=== PATIENT | male | born 1990 | race Caucasian/White ===

== ENCOUNTER → 2016-07-29 | Outpatient (CLI) | payer OTHER ==
[~2016-07-29] MED LIST: AMOXICILLIN500 MG PO; ANUSOL-HC25 MG R; CIPROFLOXACIN500 MG PO; CLARITIN10 MG PO; CYCLOBENZAPRINE10 MG PO; HYDROCODONE BIT1 T11 PO; KEFLEX500 MG PO; MOTRIN800 MG PO; Motrin,Rufen800 MG PO; NAPROSYN500 MG PO; NKHM; PRILOSEC20 M1 PO; PYRIDIUM200 MG PO; TESSALON PERLE200 MG PO; ULTRAM50 MG PO; VIBRA-TAB100 MG PO; Vicodin 5/500 505 MG PO; ZITHROMAX Z PA250 MG PO; ZOFRAN ODT4 MG SL
== END | disposition home or self-care (01) ==
LOC: RAD 14:20
DX: R06.02 Shortness of breath (principal); R07.2 Precordial pain

== ENCOUNTER → 2016-08-14 | Outpatient (CLI) | payer OTHER ==
--- NOTE | ~2016-08-14 | EEG ---
[place], [place] ELECTROENCEPHALOGRAM REPORT NAME: KEO CLIFFORD UNIT #: [id number] ROOM: DOCTOR: JR SALGADO MD,LADI DOS: 08/14/2016 This 26-year-old man, on no medications, displayed the following underlying rhythms: Well-organized 10 Hz, 30 microvolts alpha rhythm in both posterior regions. 18 Hz, 20-30 microvolts beta rhythms were noted in both anterior and posterior regions. There was symmetrical attenuation of posterior rhythm with eye opening. 2 minutes of fair hyperventilation produced no abnormalities. There was fair driving photic stimulation without abnormalities. The patient did fall sleep, progressing uneventfully through stages 1 and 2 of somnolence. Well-formed sleep spindles were seen. Throughout this tracing, there were no focal abnormalities or epileptiform activity. IMPRESSION: Normal awake and sleep electroencephalogram. Clinical correlation was highly advised. LADI SALGADO MD CM:EEG:ELECTROENCEPHALOGRAM REPORT [id number] MD LADI SALGADO JR
== END | disposition home or self-care (01) ==
LOC: US 08-13 10:00 → CT 08-13 11:00 → CP 10:42 → US 13:00
DX: R55 Syncope and collapse (principal)

== ENCOUNTER 2016-12-13 18:09 | Emergency (ER) | payer OTHER ==
[~2016-12-13] VITALS: Wt 81.6 kg
[~2016-12-13 18:09] MED LIST changes: -IBU800 MG PO; -VIBRAMYCIN100 MG PO
[2016-12-13 18:11] VITALS: BP 121/71
[2016-12-13] MEDS ORDERED: IBU800 MG PO (18:34)
[2016-12-13] MEDS ORDERED: VIBRAMYCIN100 MG PO (18:34)
[2016-12-13 19:13] LABS: BILIRUBIN NEGATIVE (NEGATIVE); BLOOD NEGATIVE (NEGATIVE); CLARITY CLEAR (CLEAR); COLOR YELLOW (YELLOW); GLUCOSE NEGATIVE (NEGATIVE); KETONE NEGATIVE (NEGATIVE); LEUKO ESTERASE NEGATIVE (NEGATIVE); NITRITE NEGATIVE (NEGATIVE); PH 6.5 (5.0-9.0); PROTEIN NEGATIVE (NEGATIVE); SPECIFIC GRAVITY <= 1.005 (1.005-1.030); UROBILINOGEN 0.2 E.U./dl (0.2-1.0)
[2016-12-13 19:27] LABS: BACTERIA TRACE; EPITHELIAL CELLS 0-2; URINE REFLEX COMMENT NO (NO)
== END 2016-12-13 19:00 | disposition home or self-care (01) ==
LOC: ED 18:09
PROVIDERS: Emergency Medicine
DX: N43.3 Hydrocele, unspecified (principal); N45.1 Epididymitis; F17.200 Nicotine dependence, unspecified, uncomplicated; F32.9 Major depressive disorder, single episode, unspecified; Z98.890 Other specified postprocedural states

== ENCOUNTER → 2016-12-13 | Outpatient (CLI) | payer OTHER ==
[~2016-12-13] MED LIST changes: +IBU800 MG PO; +VIBRAMYCIN100 MG PO
== END | disposition home or self-care (01) ==
LOC: US 16:00
DX: N43.2 Other hydrocele (principal); N45.3 Epididymo-orchitis; N50.89 Other specified disorders of the male genital organs

== ENCOUNTER 2017-10-31 13:32 | Emergency (ER) | payer SELFPAY ==
[~2017-10-31] VITALS: Ht 175.2 cm; Wt 81.2 kg
[~2017-10-31 13:32] MED LIST changes: +IBU800 MG PO; +VIBRAMYCIN100 MG PO
[2017-10-31 14:03] LABS: BASO % 0.4 % (0.0-1.0); EOS # 0.2 10*3/uL (0.0-0.4); EOS % 2.1 % (1.0-4.0); HEMATOCRIT 43.6 % (42.0-52.0); HEMOGLOBIN 15.7 g/dl (14.0-18.0); LYMPH % 21.8 % (27.0-41.0); MEAN CELL VOLUME 86.7 fl (80.0-94.0); MEAN CORPUSCULAR HGB 31.2 pg (27.0-31.0); MEAN PLATELET VOLUME 9.7 fl (9.6-12.3); MONO # 0.5 10*3/uL (0.1-1.0); MONO % 5.9 % (3.0-9.0); NEUT # 6.3 10*3/uL (2.3-7.9); NEUT % 69.5 % (47.0-73.0); PLATELET COUNT AUTOMATED 227 10*3/uL (130-400); RED BLOOD COUNT 5.03 10*6/uL (4.50-5.90); RED CELL DISTRI WIDTH 12.1 % (0-14.5); WHITE BLOOD COUNT 9.1 10*3/uL (4.8-10.8)
[2017-10-31 14:12] LABS: ACT PARTIAL THROMBO TIME 21.9 SECONDS (20.8-31.5)
[2017-10-31 14:19] LABS: ALBUMIN 4.1 gm/dl (3.1-4.5); ALKALINE PHOSPHATASE 72 U/L (45-117); BUN 16 mg/dl (7-24); CHLORIDE 102 mmol/L (98-107); CREATININE 1.19 mg/dL (0.70-1.30); LIPASE 84 U/L (73-393); POTASSIUM 4.3 mmol/L (3.5-5.1); SGOT/AST 18 IU/L (3-35); SGPT/ALT 36 U/L (12-78); SODIUM 136 mmol/L (136-145); TOTAL PROTEIN 7.4 gm/dL (6.4-8.2)
[2017-10-31 14:20] LABS: TROPONIN I < 0.015 ng/ml (<0.045)
[2017-10-31 15:31] LABS: BILIRUBIN NEGATIVE (NEGATIVE); BLOOD NEGATIVE (NEGATIVE); CLARITY CLEAR (CLEAR); COLOR YELLOW (YELLOW); GLUCOSE NEGATIVE (NEGATIVE); KETONE NEGATIVE (NEGATIVE); LEUKO ESTERASE NEGATIVE (NEGATIVE); NITRITE NEGATIVE (NEGATIVE); UROBILINOGEN 0.2 E.U./dl (0.2-1.0)
[2017-10-31 15:43] LABS: BACTERIA TRACE; WBC 0-2 wbc/hpf (0-5)
[2017-10-31 16:33] VITALS: BP 116/72
[2017-10-31] MEDS ORDERED: ZOFRAN ODT4 MG SL (16:57)
[2017-10-31] MEDS ORDERED: Motrin,Rufen800 MG PO (16:57)
== END 2017-10-31 17:00 | disposition home or self-care (01) ==
LOC: ED 13:32
PROVIDERS: Emergency Medicine
DX: R10.30 Lower abdominal pain, unspecified (principal); R11.2 Nausea with vomiting, unspecified; Z98.890 Other specified postprocedural states

== ENCOUNTER 2020-03-03 01:07 | Emergency (ER) | payer OTHER ==
[~2020-03-03] VITALS: Ht 175.2 cm; Wt 74.8 kg
[~2020-03-03 01:07] MED LIST changes: +TAMIFLU 75MG CA75 MG PO
[2020-03-03 01:10] VITALS: BP 112/67
[2020-03-03] MEDS ORDERED: CEPHALEXIN500 M1 PO (02:29)
== END 2020-03-03 03:16 | disposition home or self-care (01) ==
LOC: ED 01:07
DX: S00.81XA Abrasion of other part of head, initial encounter (principal); Y08.89XA Assault by other specified means, initial encounter; Y93.89 Activity, other specified; Y92.89 Other specified places as the place of occurrence of the external cause; Y99.8 Other external cause status

== ENCOUNTER 2020-03-03 12:48 | Emergency (ER) | payer OTHER ==
[~2020-03-03] VITALS: Ht 177.8 cm; Wt 77.1 kg
[~2020-03-03 12:48] MED LIST changes: +CEPHALEXIN500 M1 PO
[2020-03-03 14:25] VITALS: BP 121/59
== END 2020-03-03 15:29 | disposition home or self-care (01) ==
LOC: ED 12:48
DX: S00.81XA Abrasion of other part of head, initial encounter (principal); Y08.89XA Assault by other specified means, initial encounter; Y93.89 Activity, other specified; Y92.89 Other specified places as the place of occurrence of the external cause; Y99.8 Other external cause status

== ENCOUNTER 2025-01-20 08:09 | Emergency (ER) | payer OTHER ==
[~2025-01-20] VITALS: Ht 177.8 cm; Wt 83.9 kg
[2025-01-20 08:27] VITALS: BP 141/96
== END 2025-01-20 09:09 | disposition left against medical advice (07) ==
LOC: ED 08:09
DX: S09.90XA Unspecified injury of head, initial encounter (principal); Z53.21 Procedure and treatment not carried out due to patient leaving prior to being seen by health care provider; W18.39XA Other fall on same level, initial encounter; Y93.89 Activity, other specified; Y92.89 Other specified places as the place of occurrence of the external cause; Y99.8 Other external cause status

== ENCOUNTER 2025-04-14 01:04 | Emergency (ER) | payer BC, OTHER ==
[~2025-04-14] VITALS: Wt 84.8 kg
[2025-04-14 01:31] VITALS: BP 159/94
== END 2025-04-14 01:55 | disposition left against medical advice (07) ==
LOC: ED 01:04
DX: S60.512A Abrasion of left hand, initial encounter (principal); S60.511A Abrasion of right hand, initial encounter; M79.671 Pain in right foot; Z53.29 Procedure and treatment not carried out because of patient's decision for other reasons; W20.8XXA Other cause of strike by thrown, projected or falling object, initial encounter; Y93.89 Activity, other specified; Y92.89 Other specified places as the place of occurrence of the external cause; Y99.8 Other external cause status

== ENCOUNTER 2025-05-16 17:06 | Emergency (ER) | payer OTHER | END 2025-05-16 17:16 | disposition left against medical advice (07) | LOC: ED 17:06 | DX: S09.90XA Unspecified injury of head, initial encounter (principal); Z53.21 Procedure and treatment not carried out due to patient leaving prior to being seen by health care provider; W22.8XXA Striking against or struck by other objects, initial encounter; Y93.67 Activity, basketball; Y92.89 Other specified places as the place of occurrence of the external cause; Y99.8 Other external cause status ==